=== PATIENT | male | born 1955 | race Caucasian/White ===

== ENCOUNTER → 2019-08-10 | Outpatient (CLI) | payer OTHER ==
[~2019-08-10] MED LIST: OMNIPAQUE 350 MG/ML, 100ML BOTTLE ONE
== END | disposition home or self-care (01) ==
LOC: CFH 13:00
PROVIDERS: ATTEND Internal Medicine Gastroenterology
DX: D37.1 Neoplasm of uncertain behavior of stomach (principal)
CPT/HCPCS: 71260; 74177; Q9967

== ENCOUNTER 2019-09-01 09:27 | Day surgery (SDC) | payer OTHER ==
[~2019-09-01] VITALS: Ht 188 cm; Wt 82.2 kg
[2019-09-01 09:42] VITALS: BP 132/79
[2019-09-01] MEDS ORDERED: CEFAZOLIN PMX 1GM/50ML 50 ML IV STA (09:44)
[2019-09-01] MEDS ORDERED: SODIUM CHLORIDE 0.9% 1,000 ML IV ONE (09:44)
[2019-09-01] MEDS ORDERED: LIDOCAINE 1%, 20ML ONE (10:39)
[2019-09-01] MEDS ORDERED: NALOXONE 1 MG/ML, 2ML ONE (10:40)
[2019-09-01] MEDS ORDERED: FENTANYL PF 100 MCG/2ML ONE ×2 (10:40)
[2019-09-01] MEDS ORDERED: MIDAZOLAM 1 MG/ML, 5ML ONE (10:40)
[2019-09-01] MEDS ORDERED: FLUMAZENIL 0.1 MG/1 ML, 5ML ONE (10:40)
== END 2019-09-01 12:30 | disposition home or self-care (01) ==
LOC: OUT 09:27 → EDSTATUS 11:00 → OUT 12:30
PROVIDERS: ATTEND Internal Medicine
DX: C16.0 Malignant neoplasm of cardia (principal); F12.90 Cannabis use, unspecified, uncomplicated
CPT/HCPCS: 36561; 76937; 77001; 99156; 99157; C1788; J0690; J1642; J2250; J3010; J7030; J2310

== ENCOUNTER → 2019-10-10 | Outpatient (CLI) | payer OTHER | END | disposition home or self-care (01) | LOC: CFH 09:49 | PROVIDERS: ATTEND Internal Medicine | DX: R60.0 Localized edema (principal); C16.0 Malignant neoplasm of cardia | CPT/HCPCS: 93970 ==